=== PATIENT | male | born 1975 | race Caucasian/White ===

== ENCOUNTER 2019-05-08 09:31 | Inpatient (IN) | payer BC ==
--- NOTE | 2019-05-08 10:01 | PDOC ---
*Physical Exam - Vital Signs Last Vital Signs Temp Pulse Resp BP Pulse Ox 97.8 F 69 18 126/81 100 05/08/19 09:40 05/08/19 09:40 05/08/19 09:40 05/08/19 09:40 05/08/19 09:40 - Physical Exam 05/08/19 10:01 The patient was examined by [PEPPER Medley] under my direct supervision. I personally evaluated the patient. I concur with the above findings and the plan of care. ED Treatment Course - LABORATORY CBC & Chemistry Diagram: 05/09/19 08:33 05/09/19 08:33 Discharge - Discharge Information Problems reviewed: Yes Clinical Impression/Diagnosis: Abdominal pain Qualifiers: Abdominal location: unspecified location Qualified Code(s): R10.9 - Unspecified abdominal pain Condition: Fair Disposition: HOME - Follow up/Referral - Patient Discharge Instructions - Post Discharge Activity
--- NOTE | 2019-05-08 11:08 | PDOC ---
History of Present Illness - General Chief Complaint: Nausea/Vomiting Stated Complaint: ABD PAIN Time Seen by Provider: 05/08/19 09:58 History Source: Patient Exam Limitations: No Limitations - History of Present Illness Initial Comments: 05/08/19 11:02 43-year-old male with history of pancreatitis and hyperlipidemia presents complaining of nausea, vomiting and diarrhea x3 days. Also reports constant abdominal cramping worsening over the past 3 days, shortness of breath, intermittent chest pressure and mid back pain x2 days, bilateral testicular pressure x2 days. Denies fever, chills, cough, headache, earache, sore throat, changes in stool color, dysuria, urinary frequency or urgency. Returned 7 days ago from 1 week trip to the [facility]. Son and nephew at home with viral illnesses. Patient reports minimal alcohol intake while on vacation. ROS: GENERAL/CONSTITUTIONAL: No fever, chills, weakness, dizziness HEAD, EYES, EARS, NOSE AND THROAT: No changes in vision, No ear pain or discharge, No sore throat CARDIOVASCULAR: Chest pressure x2 days RESPIRATORY: Intermittent shortness of breath, denies cough GASTROINTESTINAL: Mid abdominal pain, left lower quadrant pain, nausea, vomiting , diarrhea GENITOURINARY: Testicular pressure bilaterally, denies penile discharge MUSCULOSKELETAL: No neck or back pain SKIN: No rash NEUROLOGIC: No headache, vertigo, loss of consciousness, or loss of sensation PE: GENERAL: well-appearing, NAD HEAD: NCAT EYES: Pupils equal, round and reactive to light, sclera anicteric, conjunctiva clear ENT: pharynx: no erythema, no exudate, uvula midline NECK: supple CHEST: nontender RESP: clear, no w/r/r CARDIO: rrr, no m/g/r ABD: +BS, soft, midepigastric tenderness to palpation, left lower quadrant tenderness to palpation, no rebound no guarding : No testicular tenderness to palpation, no testicular swelling, no penile discharge noted BACK: no midline spinal ttp, no CVAT EXTREMITIES: Normal range of motion, no edema NEUROLOGICAL: Normal speech, normal gait SKIN: Warm, Dry Is this a multiple visit Asthma Patient?: No Past History - Past Medical History Allergies/Adverse Reactions: Allergies Allergy/AdvReac Type Severity Reaction Status Date / Time No Known Allergies Allergy Verified 05/08/19 09:39 Home Medications: Ambulatory Orders NK [No Known Home Medication] 05/08/19 - Psycho Social/Smoking Cessation Hx Smoking Status: No Smoking History: Current every day smoker Have you smoked in the past 12 months: Yes Number of Cigarettes Smoked Daily: 0 Information on smoking cessation initiated: Yes Hx Alcohol Use: Yes Drug/Substance Use Hx: Yes Substance Use Type: Marijuana *Physical Exam - Vital Signs Last Vital Signs Temp Pulse Resp BP Pulse Ox 97.8 F 69 18 126/81 100 05/08/19 09:40 05/08/19 09:40 05/08/19 09:40 05/08/19 09:40 05/08/19 09:40 ED Treatment Course - LABORATORY CBC & Chemistry Diagram: 05/08/19 11:00 05/08/19 11:00 - RADIOLOGY Radiology Studies Ordered: Category Date Time Status ABDOMEN & PELVIS CT WITH CONTR [CT] Stat CT Scan 05/08/19 10:36 Ordered CHEST PA & LAT [RAD] Stat Radiology 05/08/19 10:34 Ordered Medical Decision Making - Medical Decision Making 05/08/19 11:08 43-year-old male with history of hyperlipidemia and pancreatitis presents with multiple complaints including abdominal pain, nausea, vomiting, diarrhea x3 days , intermittent shortness of breath, mid back pain and chest x2 days, bilateral testicular pressure x2 days. Denies urinary symptoms, leg pain, calf pain, fever, chills. Labs including CBC, CMP, lipase UA, urine culture EKG, chest x-ray CTAP w/con IV fluids Reassess 05/08/19 14:05 informed patient of elevated lipase Awaiting CTAP Dr. Pravin Hernandez ([phone]) stop by ED and aware of the case. He informed me patient has history of hydrocele, chronic testicular pain and anxiety anxiety. Although normal testicular exam will order scrotal ultrasound. Ordered LR 100ml/hr IV morphine ordered Reassess 05/08/19 15:51 Bilateral hydroceles on scrotal ultrasound Returned from CT awaiting results Patient declined initial order of morphine Continues to remain n.p.o. Discharge - Discharge Information Problems reviewed: Yes Clinical Impression/Diagnosis: Abdominal pain Qualifiers: Abdominal location: unspecified location Qualified Code(s): R10.9 - Unspecified abdominal pain Condition: Stable - Follow up/Referral Referrals: Pravin Hernandez MD [Primary Care Provider] - - Patient Discharge Instructions - Post Discharge Activity
[2019-05-08] MEDS ORDERED: SODIUM CHLORIDE 0.9% 500 ML INFUS.BAG IV ONE (11:10)
[2019-05-08 11:46] LABS: BASO % 0.7 % (0-2.0); HEMATOCRIT 42.5 % (35.4-49); HEMOGLOBIN 14.2 GM/dL (11.7-16.9); LYMPH % 27.6 % (8-40); MCH 30.8 pg (25.7-33.7); MCHC 33.5 g/dl (32.0-35.9); MEAN PLT VOLUME 10.9 fl (7.5-11.1); MONO % 7.9 % (3.8-10.2); NEUT % 61.8 % (42.8-82.8); PLATELET COUNT 205 K/MM3 (134-434); RBC 4.62 M/mm3 (4.00-5.60); RDW 13.3 % (11.9-15.9); WHITE BLOOD COUNT 5.5 K/mm3 (4.0-10.0)
[2019-05-08 11:48] LABS: PH,URINE 7.5 (5.0-8.0); URINE APPEARANCE CLEAR; URINE BILIRUBIN NEGATIVE (NEGATIVE); URINE COLOR YELLOW; URINE GLUCOSE (UA) NEGATIVE (NEGATIVE); URINE KETONE NEGATIVE (NEGATIVE); URINE LEUK ESTERASE NEGATIVE (NEGATIVE); URINE NITRITE NEGATIVE (NEGATIVE); URINE PROTEIN NEGATIVE (NEGATIVE); URINE UROBILINOGEN 0.2 mg/dL (0.2-1.0)
[2019-05-08 12:14] LABS: MAGNESIUM 2.2 mg/dL (1.8-2.4)
[2019-05-08 12:18] LABS: ALBUMIN 4.2 g/dl (3.4-5.0); BILIRUBIN,TOTAL 0.3 mg/dL (0.2-1); BLOOD UREA NITROGEN 9.9 mg/dL (7-18); CREATININE 0.8 mg/dL (0.55-1.3); POTASSIUM 4.4 mmol/L (3.5-5.1); TOT PROT 7.6 g/dl (6.4-8.2)
[2019-05-08] MEDS ORDERED: morphine CARPU-JECT 2 MG/1 ML DISP.SYRIN IVPUSH ONE (14:10)
[2019-05-08] MEDS ORDERED: LACTATED RINGERS SOLUTION 1,000 ML/1,000 ML INFUS.BAG IV SCH (14:15)
[2019-05-08] MEDS ORDERED: MORPHINE SULFATE 2 MG/ML VIAL ONE (15:16)
--- NOTE | 2019-05-08 15:38 | EKG ---
Test Reason : Blood Pressure : / mmHG Vent. Rate : 064 BPM Atrial Rate : 064 BPM P-R Int : 146 ms QRS Dur : 096 ms QT Int : 372 ms P-R-T Axes : 039 002 034 degrees QTc Int : 383 ms NORMAL SINUS RHYTHM NORMAL ECG NO PREVIOUS ECGS AVAILABLE Confirmed by MD Shahzad, Angus ([id number]) on 05/08/2019 3:37:38 PM Referred By: Confirmed By:Angus Pike MD
--- NOTE | 2019-05-08 17:52 | PDOC ---
*Physical Exam - Vital Signs Last Vital Signs Temp Pulse Resp BP Pulse Ox 97.8 F 69 18 126/81 100 05/08/19 09:40 05/08/19 09:40 05/08/19 09:40 05/08/19 09:40 05/08/19 09:40 ED Treatment Course - LABORATORY CBC & Chemistry Diagram: 05/09/19 08:33 05/09/19 08:33 - ADDITIONAL ORDERS Additional order review: Laboratory Results 05/08/19 05/08/19 05/08/19 11:00 11:00 11:00 Sodium 138 Potassium 4.4 Chloride 105 Carbon Dioxide 29 Anion Gap 4 L BUN 9.9 Creatinine 0.8 Est GFR (CKD-EPI)AfAm 128.60 Est GFR (CKD-EPI)NonAf 110.96 Random Glucose 81 Calcium 9.0 Magnesium 2.2 Total Bilirubin 0.3 AST 25 ALT 47 Alkaline Phosphatase 82 Total Protein 7.6 Albumin 4.2 Lipase 763 H Urine Color Yellow Urine Appearance Clear Urine pH 7.5 Ur Specific [place] 1.006 L Urine Protein Negative Urine Glucose (UA) Negative Urine Ketones Negative Urine Blood Negative Urine Nitrite Negative Urine Bilirubin Negative Urine Urobilinogen 0.2 Ur Leukocyte Esterase Negative 05/08/19 11:00 RBC 4.62 MCV 92.0 MCHC 33.5 RDW 13.3 MPV 10.9 Neutrophils % 61.8 Lymphocytes % 27.6 Monocytes % 7.9 Eosinophils % 2.0 Basophils % 0.7 - Medications Given in the ED: ED Medications Discontinued Medications Generic Name Dose Route Start Last Admin Trade Name Freq PRN Reason Stop Dose Admin Sodium Chloride 1,000 ml 05/08/19 11:10 05/08/19 11:24 Normal Saline - IV 05/08/19 11:11 1,000 ml ONCE ONE Administration Medical Decision Making - Medical Decision Making 05/08/19 17:49 Endorsed to me to follow results of the CT scan and then discussed with Dr. Beavers 05/08/19 17:50 CT scan of abdomen/pelvis is negative for any acute findings. Case was discussed with Dr. Hernandez at this time and requesting patient be admitted to his service. Discharge - Discharge Information Problems reviewed: Yes Clinical Impression/Diagnosis: Abdominal pain Qualifiers: Abdominal location: unspecified location Qualified Code(s): R10.9 - Unspecified abdominal pain Condition: Fair Disposition: HOME - Admission Yes - Follow up/Referral - Patient Discharge Instructions - Post Discharge Activity
--- NOTE | 2019-05-08 19:23 | HP ---
Admitting History and Physical - Admission Chief Complaint: nasea abd pain scale4 rad to bavk w testicular pain scale9. better now History Source: Patient Limitations to Obtaining History: No Limitations - Past Medical History Cardiovascular: Yes: Mitral Insufficiency Gastrointestinal: Yes: Pancreatitis Renal/: Yes: Other (jacinta htdroceles) - Smoking History Smoking history: Current every day smoker Have you smoked in the past 12 months: Yes Aproximately how many cigarettes per day: 0 - Alcohol/Substance Use Hx Alcohol Use: Yes - Social History Usual Living Arrangement: Yes: With Spouse History of Recent Travel: No Home Medications - Allergies Allergies/Adverse Reactions: Allergies Allergy/AdvReac Type Severity Reaction Status Date / Time No Known Allergies Allergy Verified 05/08/19 09:39 - Home Medications Home Medications: Ambulatory Orders NK [No Known Home Medication] 05/08/19 Family Medical History Family History: Unremarkable Review of Systems - Review of Systems Constitutional: reports: Loss of Appetite Eyes: reports: No Symptoms HENT: reports: No Symptoms Neck: reports: No Symptoms Cardiovascular: reports: No Symptoms Respiratory: reports: No Symptoms Gastrointestinal: reports: Nausea Genitourinary: reports: Testicular Pain Breasts: reports: No Symptoms Reported Musculoskeletal: reports: No Symptoms Integumentary: reports: No Symptoms Neurological: reports: No Symptoms Endocrine: reports: No Symptoms Hematology/Lymphatic: reports: No Symptoms Psychiatric: reports: No Symptoms Physical Examination Vital Signs: Vital Signs Temperature 97.8 F 05/08/19 09:40 Pulse Rate 69 05/08/19 09:40 Respiratory Rate 18 05/08/19 09:40 Blood Pressure 126/81 05/08/19 09:40 O2 Sat by Pulse Oximetry (%) 100 05/08/19 09:40 Constitutional: Yes: Anxious Eyes: Yes: WNL HENT: Yes: WNL Neck: Yes: WNL Cardiovascular: Yes: WNL Respiratory: Yes: WNL Gastrointestinal: Yes: Hemorrhoids, Tenderness ...Rectal Exam: Yes: Deferred Renal/: Yes: Scrotal Edema Breast(s): Yes: WNL Musculoskeletal: Yes: WNL Extremities: Yes: WNL Edema: No Peripheral Pulses WNL: Yes Integumentary: Yes: WNL Neurological: Yes: WNL ...Motor Strength: WNL Psychiatric: Yes: WNL Labs: CBC, BMP 05/08/19 11:00 05/08/19 11:00 Assessment/Plan diet liq only no atxb yet gi consult labs in am zofran ekg today iv fluids
[2019-05-08] MEDS ORDERED: ONDANSETRON 4 MG TABLET PO ONE (19:24)
[2019-05-08] MEDS ORDERED: ACETAMINOPHEN 325 MG TABLET (FP) PO PRN (19:29)
[2019-05-08] MEDS: SODIUM CHLORIDE 1,000 ML IV SCH ×2 (21:23→23:52)
[2019-05-08 22:44] LABS: INR 1.05 (0.83-1.09); PROTHROMBIN TIME (PATIENT) 12.4 SEC (9.7-13.0)
[2019-05-08 22:47] LABS: ACTIVATED PTT 34.5 SECONDS (25.2-36.5)
[2019-05-09 00:04] VITALS: BMI 23.2
[2019-05-09 06:38] VITALS: TEMP 97.5
[2019-05-09 09:03] LABS: HEMATOCRIT 41.8 % (35.4-49); MCH 30.6 pg (25.7-33.7); MCHC 33.4 g/dl (32.0-35.9); MEAN CELL VOLUME 91.6 fl (80-96); MEAN PLT VOLUME 10.1 fl (7.5-11.1); PLATELET COUNT 188 K/MM3 (134-434); RBC 4.57 M/mm3 (4.00-5.60); RDW 13.1 % (11.9-15.9); WHITE BLOOD COUNT 4.7 K/mm3 (4.0-10.0)
[2019-05-09 09:49] LABS: ALBUMIN 3.8 g/dl (3.4-5.0); BILIRUBIN,TOTAL 1.3 mg/dL (0.2-1); BLOOD UREA NITROGEN 9.1 mg/dL (7-18); CALCIUM 9.5 mg/dL (8.5-10.1); CREATININE 0.8 mg/dL (0.55-1.3); POTASSIUM 5.1 mmol/L (3.5-5.1); TOT PROT 7.1 g/dl (6.4-8.2)
[2019-05-09] MEDS ORDERED: PANTOPRAZOLE SODIUM 40 MG VIAL IVPUSH SCH (10:00)
[2019-05-09 10:21] VITALS: BP 124/78; PULSE 56
--- NOTE | 2019-05-09 10:32 | DS ---
Physical Examination Vital Signs: Vital Signs Temperature 97.5 F L 05/09/19 06:00 Pulse Rate 56 L 05/09/19 10:00 Respiratory Rate 18 05/09/19 10:00 Blood Pressure 124/78 05/09/19 10:00 O2 Sat by Pulse Oximetry (%) 98 05/09/19 09:00 Constitutional: Yes: Well Nourished, Pallor HENT: Yes: WNL Neck: Yes: WNL Cardiovascular: Yes: WNL Respiratory: Yes: WNL Gastrointestinal: Yes: WNL ...Rectal Exam: Yes: WNL, Deferred Renal/: Yes: WNL Breast(s): Yes: WNL Musculoskeletal: Yes: WNL Extremities: Yes: WNL Edema: No Peripheral Pulses WNL: Yes Neurological: Yes: WNL ...Motor Strength: WNL Labs: CBC, BMP 05/09/19 08:33 05/09/19 08:33 Discharge Summary Problems reviewed: Yes Reason For Visit: ABD PAIN,ACUTE PANCREATITS Current Active Problems Abdominal pain (Acute) Condition: Fair - Instructions Diet, Activity, Other Instructions: [place] [address] marko d/c home today Referrals: Pravin Hernandez MD [Primary Care Provider] - - Home Medications Comprehensive Discharge Medication List: Ambulatory Orders NK [No Known Home Medication] 05/08/19
--- NOTE | 2019-05-09 12:40 | EKG ---
Test Reason : Blood Pressure : / mmHG Vent. Rate : 063 BPM Atrial Rate : 063 BPM P-R Int : 148 ms QRS Dur : 096 ms QT Int : 378 ms P-R-T Axes : 039 -15 029 degrees QTc Int : 386 ms NORMAL SINUS RHYTHM NORMAL ECG WHEN COMPARED WITH ECG OF 08-MAY-2019 11:14, NO SIGNIFICANT CHANGE WAS FOUND Confirmed by RAFITA PURI MD ([id number]) on 05/09/2019 12:39:46 PM Referred By: Confirmed By:RAFITA PURI MD
== END 2019-05-09 11:57 | disposition home or self-care (01) | DRG 392 ==
LOC: JER 09:31 → JERBED 17:52 → J5S 23:25
PROVIDERS: ADMIT Family Medicine; ATTEND Family Medicine
DX: R10.9 Unspecified abdominal pain (principal); N43.3 Hydrocele, unspecified
CPT/HCPCS: 36415; 71046-TC-FY; 74177-TC; 76870-TC; 80053; 81003; 83690; 83735; 85025; 85027; 85610; 85730; 87086; 93005; 93010; 99285-25; J7030; Q9967